=== PATIENT | female | born 1945 | race Caucasian/White ===

== ENCOUNTER → 2016-08-14 | Outpatient (CLI) | payer OTHER ==
[2016-08-14 08:42] LABS: ASPARTATE AMINO TRANSFERASE 20 U/L (15-37); BLOOD UREA NITROGEN 19 mg/dL (7-18)
== END | disposition home or self-care (01) ==
LOC: LAB 08:01
PROVIDERS: ATTEND Nurse Practitioner Family
DX: E78.5 Hyperlipidemia, unspecified (principal)
CPT/HCPCS: 36415; 80053; 80061; 85025; 86141

== ENCOUNTER → 2016-08-28 | Outpatient (CLI) | payer OTHER | END | disposition home or self-care (01) | LOC: CFH 12:24 | PROVIDERS: ATTEND Family Medicine | DX: Z12.31 Encounter for screening mammogram for malignant neoplasm of breast (principal); Z80.3 Family history of malignant neoplasm of breast | CPT/HCPCS: G0202 ==

== ENCOUNTER → 2017-06-18 | Outpatient (CLI) | payer OTHER ==
[2017-06-18 08:22] LABS: ALANINE AMINOTRANSFERASE 16 U/L (12-78); ALBUMIN 3.5 g/dL (3.4-5.0); ANION GAP 8 mmol/L (5-15); CALCIUM 8.5 mg/dL (8.5-10.1); CHLORIDE 108 mmol/L (98-107); CREATININE 0.65 mg/dL (0.55-1.02); HIGH-SENSITIVITY CRP 0.11 mg/dL (0.02-0.30)
[2017-06-18 08:25] LABS: ALKALINE PHOSPHATASE 69 U/L (45-117); BILIRUBIN,TOTAL 0.8 mg/dL (0.2-1.0); CHOL/HDL RATIO 2.5; CHOLESTEROL, TOTAL 202 mg/dL (140-239); HDL CHOL % 41 % (28-40); HDL CHOLESTEROL (DIRECT) 82 mg/dL (40-60); LDL CHOLESTEROL,CALCULATED 105 mg/dL (54-169); LDL/HDL RATIO 1.3 (0.5-3.0); TOTAL PROTEIN 6.9 g/dL (6.4-8.2); TRIGLYCERIDES 73 mg/dL (50-200); VLDL CHOLESTEROL 15 mg/dL (0-25)
== END | disposition home or self-care (01) ==
LOC: LAB 07:54
PROVIDERS: ATTEND Nurse Practitioner Family
DX: E78.5 Hyperlipidemia, unspecified (principal)
CPT/HCPCS: 36415; 80053; 80061; 86141

== ENCOUNTER 2019-02-10 12:19 | Outpatient (CLI) | payer OTHER ==
[2019-02-10 12:41] LABS: BASOPHILS # (AUTO) 0.06 x10^3/uL (0-0.1); BASOPHILS % (AUTO) 1 % (0-1); EOSINOPHILS # (AUTO) 0.18 x10^3/uL (0-0.4); EOSINOPHILS % (AUTO) 3 % (1-7); LYMPHOCYTES # (AUTO) 2.07 x10^3/uL (1-3.4); LYMPHOCYTES % (AUTO) 36 % (22-44); MD NO; MEAN CORPUSCULAR HEMOGLOBIN 33.8 pg (27.0-34.8); MEAN CORPUSCULAR HGB CONC 33.3 g/dL (32.4-35.8); MEAN CORPUSCULAR VOLUME 101.6 fL (80-100); MEAN PLATELET VOLUME 7.7 fL (7.4-10.4); MONOCYTES # (AUTO) 0.43 x10^3/uL (0.2-0.8); MONOCYTES % (AUTO) 8 % (2-9); NEUTROPHILS # (AUTO) 3.05 x10^3/uL (1.8-6.8); NEUTROPHILS % (AUTO) 53 % (42-75); PLATELET COUNT 224 x10^3/uL (130-400); RED CELL DISTRIBUTION WIDTH 13.4 % (9.6-15.2)
[2019-02-10 12:46] LABS: ALBUMIN 3.8 g/dL (3.4-5.0); ANION GAP 6 mmol/L (5-15); CALCIUM 8.8 mg/dL (8.5-10.1); CHLORIDE 108 mmol/L (98-107)
[2019-02-10 12:54] LABS: ALANINE AMINOTRANSFERASE 20 U/L (12-78); ALKALINE PHOSPHATASE 66 U/L (45-117); BILIRUBIN,TOTAL 0.6 mg/dL (0.2-1.0); CHOL/HDL RATIO 2.8; CHOLESTEROL, TOTAL 209 mg/dL (140-239); CREATININE 0.63 mg/dL (0.55-1.02); HDL CHOL % 36 % (28-40); HDL CHOLESTEROL (DIRECT) 75 mg/dL (40-60); LDL CHOLESTEROL,CALCULATED 114 mg/dL (54-169); LDL/HDL RATIO 1.5 (0.5-3.0); TOTAL PROTEIN 7.2 g/dL (6.4-8.2); TRIGLYCERIDES 98 mg/dL (50-200); VLDL CHOLESTEROL 20 mg/dL (0-25)
== END 2019-02-10 23:59 | disposition home or self-care (01) ==
LOC: LAB 12:19
PROVIDERS: ATTEND Nurse Practitioner Family
DX: E78.5 Hyperlipidemia, unspecified (principal)
CPT/HCPCS: 36415; 80053; 80061; 85025

== ENCOUNTER 2019-08-25 08:34 | Emergency (ER) | payer OTHER ==
[~2019-08-25] VITALS: Ht 160 cm; Wt 44.1 kg
--- NOTE | 2019-08-25 08:44 | NUR ---
PT AMBULATED BACK TO ROOM WITH A SMOOTH AND STEADY GAIT, NAD, RESP WNL, VSS, PT REFUSED TO PUT ON GOWN, TOP OF L FOOT IS SWOLLEN AND REDDENED. PT STATES SHE IS UNSURE WHAT SHE DID TO IT". PT SITTING IN CHAIR P/W/D, MAEx4, CALL LIGHT WITHIN REACH. WCTM.
[2019-08-25 09:11] LABS: BASOPHILS # (AUTO) 0.05 x10^3/uL (0-0.1); BASOPHILS % (AUTO) 1 % (0-1); EOSINOPHILS # (AUTO) 0.15 x10^3/uL (0-0.4); EOSINOPHILS % (AUTO) 2 % (1-7); LYMPHOCYTES # (AUTO) 1.85 x10^3/uL (1-3.4); LYMPHOCYTES % (AUTO) 30 % (22-44); MD NO; MEAN CORPUSCULAR HEMOGLOBIN 34.4 pg (27.0-34.8); MEAN CORPUSCULAR HGB CONC 33.6 g/dL (32.4-35.8); MEAN CORPUSCULAR VOLUME 102.4 fL (80-100); MEAN PLATELET VOLUME 7.7 fL (7.4-10.4); MONOCYTES # (AUTO) 0.47 x10^3/uL (0.2-0.8); MONOCYTES % (AUTO) 8 % (2-9); NEUTROPHILS % (AUTO) 60 % (42-75); PLATELET COUNT 208 x10^3/uL (130-400); RED BLOOD COUNT 4.23 x10^6/uL (3.82-5.3); RED CELL DISTRIBUTION WIDTH 13.4 % (9.6-15.2)
[2019-08-25 09:40] VITALS: BP 137/61
--- NOTE | 2019-08-25 09:41 | NUR ---
Patient/Caregiver given discharge instructions and they have confirmed that they understand the instructions. Patient ambulatory with steady gait. Denies additional questions at this time. MAEx4, NAD, VSS, RESP WNL, P/W/D.
== END 2019-08-25 09:42 | disposition home or self-care (01) ==
LOC: ED 08:56
DX: L03.116 Cellulitis of left lower limb (principal); M79.672 Pain in left foot
CPT/HCPCS: 36415; 85025; 99284

== ENCOUNTER → 2019-09-28 | Outpatient (CLI) | payer OTHER | END | disposition home or self-care (01) | LOC: CFH 13:37 | PROVIDERS: ATTEND Nurse Practitioner Family | DX: Z12.31 Encounter for screening mammogram for malignant neoplasm of breast (principal) | CPT/HCPCS: 77067 ==

== ENCOUNTER 2020-01-11 10:16 | Outpatient (CLI) | payer OTHER | END 2020-01-11 23:59 | disposition home or self-care (01) | LOC: CFH 10:16 | PROVIDERS: ATTEND Nurse Practitioner Family | DX: R92.2 Inconclusive mammogram (principal) | CPT/HCPCS: 76641 ==

== ENCOUNTER → 2020-05-09 | Outpatient (CLI) | payer OTHER ==
[2020-05-09 10:31] LABS: BASOPHILS % (AUTO) 1 % (0-1); EOSINOPHILS % (AUTO) 2 % (1-7); LYMPHOCYTES % (AUTO) 26 % (22-44); MEAN CORPUSCULAR HEMOGLOBIN 34.3 pg (27.0-34.8); MEAN CORPUSCULAR HGB CONC 34.3 g/dL (32.4-35.8); MEAN PLATELET VOLUME 7.5 fL (7.4-10.4); MONOCYTES % (AUTO) 7 % (2-9); NEUTROPHILS % (AUTO) 64 % (42-75); PLATELET COUNT 208 x10^3/uL (130-400); RED BLOOD COUNT 3.94 x10^6/uL (3.82-5.3); RED CELL DISTRIBUTION WIDTH 12.8 % (9.6-15.2)
[2020-05-09 10:32] LABS: MD NO
[2020-05-09 10:36] LABS: ALANINE AMINOTRANSFERASE 23 U/L (12-78); ALBUMIN 3.6 g/dL (3.4-5.0); ANION GAP 6 mmol/L (5-15); CALCIUM 8.7 mg/dL (8.5-10.1); CHLORIDE 108 mmol/L (98-107); CHOLESTEROL, TOTAL 199 mg/dL (140-239); CREATININE 0.58 mg/dL (0.55-1.02); TRIGLYCERIDES 87 mg/dL (50-200); VLDL CHOLESTEROL 17 mg/dL (0-25)
[2020-05-09 10:38] LABS: ALKALINE PHOSPHATASE 69 U/L (45-117); BILIRUBIN,TOTAL 0.8 mg/dL (0.2-1.0); CHOL/HDL RATIO 2.7; HDL CHOL % 37 % (28-40); HDL CHOLESTEROL (DIRECT) 74 mg/dL (40-60); LDL CHOLESTEROL,CALCULATED 108 mg/dL (54-169); LDL/HDL RATIO 1.5 (0.5-3.0); TOTAL PROTEIN 6.7 g/dL (6.4-8.2)
== END | disposition home or self-care (01) ==
LOC: LAB 09:54
PROVIDERS: ATTEND Nurse Practitioner Family
DX: E78.5 Hyperlipidemia, unspecified (principal); E55.9 Vitamin D deficiency, unspecified; Z79.899 Other long term (current) drug therapy
CPT/HCPCS: 36415; 80053; 80061; 82306; 85025

== ENCOUNTER 2020-11-06 09:00 | Inpatient (IN) | payer OTHER ==
[~2020-11-06] VITALS: Ht 160 cm; Wt 45.0 kg
--- NOTE | 2020-11-06 09:22 | NUR ---
PT W ABD PAIN RUQ SINCE FRI, NAUSE, LOSS OF APPETITE. SENT IN BY PCP. JAUNDICE. +SCLERAL ICTERUS. ABD MORE TENDER TO PALP. LAST ORAL INTAKE YEST MORNING. DENIES GALL BLADDER/LIVER ISSUES. STS ALSO PEEING "GOLD URINE". HX DIVERTICULITIS AND HLD. NO VOMITING/DIARRHEA. A&OX4 GCS 15. MD AT BEDSIDE FOR EVAL.
[2020-11-06] MEDS ORDERED: PRAV10TA2 PO (09:26)
[2020-11-06] MEDS ORDERED: ONDANSETRON 2MG/ML, 2ML ONE (09:29)
--- NOTE | 2020-11-06 09:39 | NUR ---
MEDS/LABS/UA WALKED TO LAB. EKG COMPLETE. SR. CALL ADELAIDA.
[2020-11-06 09:47] LABS: BASOPHILS % (AUTO) 1 % (0-1); EOSINOPHILS % (AUTO) 1 % (1-7); LYMPHOCYTES % (AUTO) 22 % (22-44); MEAN CORPUSCULAR HEMOGLOBIN 34.6 pg (27.0-34.8); MEAN CORPUSCULAR HGB CONC 34.2 g/dL (32.4-35.8); MEAN PLATELET VOLUME 8.2 fL (7.4-10.4); MONOCYTES % (AUTO) 7 % (2-9); NEUTROPHILS % (AUTO) 69 % (42-75); PLATELET COUNT 174 x10^3/uL (130-400); RED BLOOD COUNT 3.89 x10^6/uL (3.82-5.3); RED CELL DISTRIBUTION WIDTH 13.3 % (9.6-15.2)
[2020-11-06 09:53] LABS: MICROSCOPIC INDICATED
[2020-11-06 09:55] LABS: ALANINE AMINOTRANSFERASE 545 U/L (12-78); ALBUMIN 3.5 g/dL (3.4-5.0); ANION GAP 10 mmol/L (5-15); CALCIUM 9.1 mg/dL (8.5-10.1); CHLORIDE 106 mmol/L (98-107); CREATININE 0.47 mg/dL (0.55-1.02)
[2020-11-06 09:58] LABS: ALKALINE PHOSPHATASE 304 U/L (45-117); TOTAL PROTEIN 7.1 g/dL (6.4-8.2)
[2020-11-06] MEDS ORDERED: ONDANSETRON 2MG/ML, 2ML IVPush ONE (10:00)
[2020-11-06] MEDS ORDERED: SODIUM CHLORIDE 0.9% 1,000ML IVBOLUS ONE (10:00)
--- NOTE | 2020-11-06 10:12 | NUR ---
MD AWARE OF LABS, PT STS BROTHER HAS HX PANCREATIC CA. PLAN RAD. AURELIOVBAND AT BEDSIDE.
[2020-11-06] MEDS ORDERED: SODIUM CHLORIDE FLUSH 10ML SYR IVF ONE (10:30)
[2020-11-06] MEDS ORDERED: OMNIPAQUE 350 MG/ML, 100ML BOTTLE ONE (10:39)
[2020-11-06] MEDS ORDERED: DEXTROSE 50%, 50ML SYRINGE ONE (10:57)
[2020-11-06] MEDS ORDERED: DEXTROSE 50%, 50ML SYRINGE IVPush ONE (11:00)
--- NOTE | 2020-11-06 11:01 | NUR ---
BGL 47, 1 AM D50 PER VERBAL ORDER DR WILLIAMSON.
--- NOTE | 2020-11-06 11:27 | NUR ---
BGL RECHECK 189. PT EATING FOOD PER MD.
--- NOTE | 2020-11-06 12:15 | NUR ---
ATTEMPT TO CALL REPORT X1 RN TO CALL BACK.
--- NOTE | 2020-11-06 12:32 | NUR ---
ROOM ASSIGNEMNT CHANGED, REPORT TO JAMA JADE.
[2020-11-06 13:43] VITALS: BP 149/71
[2020-11-06] MEDS ORDERED: morphine SULFATE 10 MG/ML, 1ML IVPush PRN (15:30)
[2020-11-06] MEDS ORDERED: ONDANSETRON 2MG/ML, 2ML IVPush PRN (15:30)
[2020-11-06] MEDS ORDERED: ACETAMINOPHEN 325 MG TABLET PO PRN (15:30)
[2020-11-06] MEDS ORDERED: POLYETHYLENE GLYCOL 17 GM PACKET PO PRN (15:30)
[2020-11-06] MEDS: POTASSIUM CHLORIDE 20 MEQ in LACTATED RINGERS 1,000 ML IV SCH (18:29)
[2020-11-06 19:27] VITALS: BP 117/63
[2020-11-06] MEDS ORDERED: TRAZODONE 50MG TABLET PO PRN (21:00)
[2020-11-06] MEDS: MELATONIN 5 MG TABLET PO PRN (23:01)
[2020-11-07 03:29] VITALS: BP 116/51
[2020-11-07] MEDS: POTASSIUM CHLORIDE 20 MEQ in LACTATED RINGERS 1,000 ML IV SCH ×3 (03:34→20:06)
[2020-11-07 05:42] LABS: BASOPHILS % (AUTO) 1 % (0-1); EOSINOPHILS % (AUTO) 2 % (1-7); LYMPHOCYTES % (AUTO) 21 % (22-44); MEAN PLATELET VOLUME 8.2 fL (7.4-10.4); MONOCYTES % (AUTO) 10 % (2-9); NEUTROPHILS % (AUTO) 66 % (42-75); PLATELET COUNT 173 x10^3/uL (130-400); RED BLOOD COUNT 3.53 x10^6/uL (3.82-5.3); RED CELL DISTRIBUTION WIDTH 13.4 % (9.6-15.2)
[2020-11-07 05:49] LABS: ALANINE AMINOTRANSFERASE 430 U/L (12-78); ALBUMIN 2.8 g/dL (3.4-5.0); ANION GAP 6 mmol/L (5-15); CALCIUM 8.5 mg/dL (8.5-10.1); CHLORIDE 112 mmol/L (98-107)
[2020-11-07 05:51] LABS: ALKALINE PHOSPHATASE 294 U/L (45-117); TOTAL PROTEIN 5.9 g/dL (6.4-8.2)
[2020-11-07 05:54] LABS: INTERNATIONAL NORMALIZED RATIO 1.02 (0.93-1.1); PROTHROMBIN TIME 10.9 Seconds (9.6-11.5)
[2020-11-07 07:13] VITALS: BP 125/70
[2020-11-07] MEDS ORDERED: EPHEDRINE 50 MG/ML, 1ML IVPush PRN (08:00)
[2020-11-07] MEDS ORDERED: FENTANYL PF 100 MCG/2ML IV PRN (08:00)
[2020-11-07] MEDS ORDERED: hydrALAzine 20 MG/ML, 1ML IV PRN (08:00)
[2020-11-07] MEDS ORDERED: ONDANSETRON 2MG/ML, 2ML IVPush PRN (08:00)
[2020-11-07] MEDS ORDERED: PROMETHAZINE 25 MG/ML, 1ML IVPush PRN (08:00)
[2020-11-07] MEDS ORDERED: LABETALOL 5MG/ML, 20ML IV PRN (08:00)
[2020-11-07] MEDS ORDERED: ACETAMINOPHEN 325 MG TABLET PO PRN (08:00)
[2020-11-07] MEDS: SENNA/DOCUSATE TABLET PO SCH (09:00)
[2020-11-07] MEDS ORDERED: LORazepam 2 MG/ML, 1ML ONE (11:59)
[2020-11-07] MEDS ORDERED: LORazepam 2 MG/ML, 1ML IVPush ONE (12:00)
[2020-11-07] MEDS ORDERED: OMNIPAQUE 350 MG/ML, 50 ML BOTTLE ONE (12:16)
[2020-11-07] MEDS ORDERED: CHLORHEXIDINE 15 ML UDC ONE (12:30)
[2020-11-07] MEDS ORDERED: ONDANSETRON 2MG/ML, 2ML ONE (12:40)
[2020-11-07] MEDS ORDERED: FENTANYL PF 100 MCG/2ML ONE ×3 (12:40→14:57)
[2020-11-07] MEDS ORDERED: SUCCINYLCHOLINE 20 MG/ML, 10ML ONE (12:40)
[2020-11-07] MEDS ORDERED: KETOROLAC 30 MG/1 ML ONE (12:40)
[2020-11-07] MEDS ORDERED: hydrALAzine 20 MG/ML, 1ML ONE (12:40)
[2020-11-07] MEDS ORDERED: PROPOFOL 10 MG/ML, 20ML ONE (12:40)
[2020-11-07] MEDS ORDERED: DEXAMETHASONE 4 MG/ML, 5ML ONE (12:40)
[2020-11-07 15:26] VITALS: BP 85/43
[2020-11-07 19:16] VITALS: BP 95/49
[2020-11-08 02:53] VITALS: BP 94/61
[2020-11-08 05:32] LABS: ALBUMIN 2.6 g/dL (3.4-5.0); ANION GAP 7 mmol/L (5-15); CALCIUM 8.5 mg/dL (8.5-10.1); CHLORIDE 111 mmol/L (98-107)
[2020-11-08 05:37] LABS: ALANINE AMINOTRANSFERASE 301 U/L (12-78); ALKALINE PHOSPHATASE 284 U/L (45-117); BILIRUBIN,TOTAL 2.2 mg/dL (0.2-1.0); TOTAL PROTEIN 5.8 g/dL (6.4-8.2)
[2020-11-08] MEDS: SENNA/DOCUSATE TABLET PO SCH (09:31)
[2020-11-08 09:45] VITALS: BP 118/62
[2020-11-08] MEDS: POTASSIUM CHLORIDE 20 MEQ in LACTATED RINGERS 1,000 ML IV SCH (10:03)
[2020-11-08 13:10] VITALS: BP 101/61
[2020-11-08 20:29] VITALS: BP 102/49
[2020-11-08] MEDS: MELATONIN 5 MG TABLET PO PRN (22:08)
[2020-11-09 01:17] VITALS: BP 94/53
[2020-11-09] MEDS: POTASSIUM CHLORIDE 20 MEQ in LACTATED RINGERS 1,000 ML IV SCH ×2 (01:17→12:06)
[2020-11-09 06:42] LABS: ALBUMIN 2.8 g/dL (3.4-5.0); CALCIUM 8.3 mg/dL (8.5-10.1); CHLORIDE 107 mmol/L (98-107)
[2020-11-09 06:46] LABS: ALANINE AMINOTRANSFERASE 207 U/L (12-78); ALKALINE PHOSPHATASE 241 U/L (45-117); BILIRUBIN,TOTAL 1.7 mg/dL (0.2-1.0); TOTAL PROTEIN 6.1 g/dL (6.4-8.2)
[2020-11-09 06:52] LABS: ANION GAP 4 mmol/L (5-15)
[2020-11-09 08:40] VITALS: BP 118/65
[2020-11-09] MEDS: SENNA/DOCUSATE TABLET PO SCH (08:54)
[2020-11-09] MEDS ORDERED: TRAM50TA2 PO (11:56)
[2020-11-09] MEDS ORDERED: SENN1TAB94 PO (11:56)
== END 2020-11-09 13:50 | disposition home or self-care (01) | DRG 435 ==
LOC: ED 09:12 → EDIP 11:28 → SUATTDRO 11:43 → 3N 12:13 → EDIP 12:17 → 4NE 13:33
PROVIDERS: ADMIT Hospitalist; ATTEND Family Medicine
PROC: 0FBG8ZX Excision of Pancreas, Via Natural or Artificial Opening Endoscopic, Diagnostic (ICD-10-PCS; 2020-11-07)
PROC: 0F798DZ Dilation of Common Bile Duct with Intraluminal Device, Via Natural or Artificial Opening Endoscopic (ICD-10-PCS; 2020-11-07)
PROC: 0F7D8DZ Dilation of Pancreatic Duct with Intraluminal Device, Via Natural or Artificial Opening Endoscopic (ICD-10-PCS; 2020-11-07)
PROC: 0DB98ZX Excision of Duodenum, Via Natural or Artificial Opening Endoscopic, Diagnostic (ICD-10-PCS; principal; 2020-11-07 13:00)
DX: C25.0 Malignant neoplasm of head of pancreas (principal); K83.1 Obstruction of bile duct; K85.90 Acute pancreatitis without necrosis or infection, unspecified; Z20.822 Contact with and (suspected) exposure to COVID-19; E16.2 Hypoglycemia, unspecified; E78.00 Pure hypercholesterolemia, unspecified; E78.5 Hyperlipidemia, unspecified; F17.200 Nicotine dependence, unspecified, uncomplicated; Z66 Do not resuscitate; Z90.710 Acquired absence of both cervix and uterus; Z80.8 Family history of malignant neoplasm of other organs or systems
CPT/HCPCS: 36415; 74177; 74181; 74330; 80053; 81001; 82962; 83690; 85025; 85610; 86301; 87086; 87635; 88172; 88173; 88177; 88305; 88307; 93005; 96374; G0378; J1100; J1885; J2405; J2704; J3010; J3480; Q9967; C1769; C1894; C2625; J0330; J0360; J2060; J7030; J7120

== ENCOUNTER → 2020-11-26 | Outpatient (CLI) | payer OTHER ==
[~2020-11-26] MED LIST: OMNIPAQUE 350 MG/ML, 100ML BOTTLE ONE; PRAV10TA2 PO; SENN1TAB94 PO; TRAM50TA2 PO
== END | disposition home or self-care (01) ==
LOC: CFH 13:07
PROVIDERS: ATTEND Surgery
DX: C25.9 Malignant neoplasm of pancreas, unspecified (principal); K86.89 Other specified diseases of pancreas
CPT/HCPCS: 74170; Q9967